=== PATIENT | female | born 1965 | race Caucasian/White ===

== ENCOUNTER 2019-05-22 06:48 | Day surgery (SDC) | payer OTHER ==
[2019-05-22] MEDS ORDERED: BUPIVACAINE 0.5% PF 10 ML VIAL ONE (07:24)
[2019-05-22] MEDS ORDERED: CEFAZOLIN/SWI 1gm 0 GM/0 ML SYR ONE (07:34)
[2019-05-22 07:36] LABS: Basophils % 0.3 % (0-1.3); Hematocrit 42.3 % (36.0-45.0); MPV 8.2 fL (7.6-11.3); RBC Red Blood Cell Count 4.79 M/uL (3.86-4.86)
[2019-05-22] MEDS ORDERED: FENTANYL CITR 100 MCG/2 ML ONE ×2 (07:41→08:19)
[2019-05-22] MEDS ORDERED: propofoL 200 MG/20 ML VIAL IV ONE (07:41)
[2019-05-22 07:42] LABS: Potassium 3.8 mmol/L (3.5-5.1)
[2019-05-22] MEDS: Ringers Lactate 1,000 ML IV ONE (07:42)
[2019-05-22] MEDS ORDERED: LIDOCAINE 2% MPF 5 ML VIAL ONE (07:42)
[2019-05-22] MEDS ORDERED: ONDANSETRON 4 MG/2 ML VIAL ONE ×2 (07:43→08:18)
[2019-05-22] MEDS ORDERED: MIDAZOLAM HCL 2 MG/2 ML INJ ONE (07:43)
[2019-05-22] MEDS ORDERED: CEFOXITIN/SWI 1gm 1 GM/10 ML SYR ONE (07:43)
[2019-05-22] MEDS ORDERED: dexAMETHasone 10 MG/ML VIAL ONE (08:10)
[2019-05-22] MEDS: MEPERIDINE HCL 25 MG/0.5 ML ONE ×3 (08:53→08:58)
--- NOTE | 2019-05-22 08:59 | RAD REPORT ---
EXAM DESCRIPTION: RAD - Chest Pa And Lat (2 Views) - 05/22/2019 7:28 am CLINICAL HISTORY: pre op, patient pending hemorrhoid surgery COMPARISON: No comparisons TECHNIQUE: Frontal and lateral views of the chest were obtained. FINDINGS: The lungs are clear. Heart size is normal and central vasculature is within normal limit s. No pleural effusion or pneumothorax seen. No acute bony finding noted. No aortic abnormality. IMPRESSION: No acute cardiopulmonary process.
--- NOTE | 2019-05-22 09:39 | OP ---
Date of Procedure: 05/22/2019 Surgeon: Cruz Lazar MD Preoperative Diagnosis: Thrombosed hemorrhoids x2. Postoperative Diagnosis: Thrombosed hemorrhoids x2. Procedure: Exam under anesthesia, rigid proctoscopy, complex hemorrhoidectomy x2. Estimated Blood Loss: Minimal. Specimens: Thrombosed hemorrhoids x2. Please note, they both had internal and external components t o it. Findings: As above. Anesthesia: General. Complications: None. Patient tolerated the procedure in stable condition, taken to Recovery in good general condition. Operative Note: Patient was brought to the OR and placed in supine position. General anesthesia was begun. Patient was placed in lithotomy position, prepped and draped in usual sterile fashion. Exam under anesthesia and rigid proctoscopy revealed anterior right and left thrombosed complex hemorrhoi ds with internal and external components. No other significant findings were noted. Subsequently, H armonic Scalpel was utilized to excise both of those hemorrhoids separately, sent to Pathology after being labeled appropriately. Wound examined, no evidence of bleeding noted and then sterile dressing was applied. Patient was awakened and taken to Recovery in good general condition. Marcaine 0.5% i nfiltrated for postop pain control. Discharge Note: The patient will go to day surgery and home when stable. Disposition: Home. Condition: Stable. Discharge Instructions: Resume home medications and diet. Activity as tolerated. No heavy lifting. Sitz bath q.i.d., high-fiber diet. Metamucil 1 tablespoon p.o. t.i.d., Colace 100 mg p.o. b.i.d., Procto-HC 2.5% to anus b.i.d. and p.r.n., Ultracet 1 tablet p.o. q.4 p.r.n. pain. Follow up in [place] in 2 weeks, call for appointment. /LEAHL Voice ID: [id number] Report ID: [id number]
[2019-05-22 13:55] VITALS: BP 163/89; TEMP 97.7; O2SAT 99
== END 2019-05-22 11:10 | disposition home or self-care (01) ==
LOC: OR 06:48
PROVIDERS: ATTEND Surgery
PROC: 0DJD8ZZ Inspection of Lower Intestinal Tract, Via Natural or Artificial Opening Endoscopic (ICD-10-PCS; 2019-05-22)
PROC: 06BY0ZC Excision of Hemorrhoidal Plexus, Open Approach (ICD-10-PCS; 2019-05-22)
PROC: 06BY0ZC Excision of Hemorrhoidal Plexus, Open Approach (ICD-10-PCS; 2019-05-22)
PROC: 06BY0ZC Excision of Hemorrhoidal Plexus, Open Approach (ICD-10-PCS; principal; 2019-05-22 08:15)
DX: K64.5 Perianal venous thrombosis (principal); Z88.6 Allergy status to analgesic agent; M81.0 Age-related osteoporosis without current pathological fracture
CPT/HCPCS: 85025; 80048; 36415; 88304; 71046; 45300; 46320 ×2; J2704; J3010 ×2; J1100; J2175; J7120; J2405 ×2; J0690; J2250